=== PATIENT | female | born 1960 | race Caucasian/White ===

== ENCOUNTER 2016-09-21 10:38 | Inpatient (IN) | payer MEDICAID ==
[2016-09-21] VITALS (12 sets, daily range): BP systolic 100–114; BP diastolic 66–76
[~2016-09-21] VITALS: Ht 167.6 cm; Wt 44.5 kg
[2016-09-21] MEDS ORDERED: IV NS 0.9% 1,000 ML BAG IV ONE ×2 (11:30→13:00)
[2016-09-21 11:35] LABS: CALCIUM, SERUM 8.5 mg/dL (8.5-10.1); CREATININE 0.9 mg/dL (0.6-1.3); POTASSIUM 3.1 mmol/L (3.5-5.1)
[2016-09-21 11:43] LABS: TROPONIN I 0.028 ng/mL (0.00-0.056)
[2016-09-21 11:46] LABS: ALBUMIN 2.7 g/dL (3.4-5.0); BILIRUBIN,DIRECT 0.1 mg/dL (0.0-0.2); BILIRUBIN,TOTAL 0.4 mg/dL (0.2-1.0); INDIRECT BILIRUBIN 0.3 mg/dL (0.0-1.1); TOTAL PROTEIN, SERUM 7.6 g/dL (6.4-8.2)
[2016-09-21 11:53] LABS: INR 1.08 (0.87-1.13); PROTHROMBIN TIME 11.3 SECS (9.5-12.7)
[2016-09-21 12:13] LABS: BASOPHILS % (AUTO) 0.8 % (0.0-2.0); EOSINOPHILS % (AUTO) 0.1 % (0.0-6.0); LYMPHOCYTES # (AUTO) 1.5 /CMM (0.8-4.8); LYMPHOCYTES % (AUTO) 27.8 % (20.0-44.0); MEAN CORPUSCULAR HEMOGLOBIN 24 PG (26.0-33.0); MEAN CORPUSCULAR HGB CONC 31 g/dl (31.0-36.0); MEAN CORPUSCULAR VOLUME 80 fL (82-100); MONOCYTES # (AUTO) 0.5 /CMM (0.1-1.30); MONOCYTES % (AUTO) 8.8 % (2.0-12.0); NEUTROPHILS # (AUTO) 3.3 /CMM (1.8-8.9); NEUTROPHILS % (AUTO) 62.5 % (43.0-81.0); PLATELET COUNT (AUTO) 223 /CMM (150-450); WHITE BLOOD COUNT (AUTO) 5.3 K/uL (4.3-11.0)
[2016-09-21 12:23] LABS: RED BLOOD CELL COUNT(AUTO) 1.66 MIL/uL (4.0-5.2)
[2016-09-21 12:24] LABS: HEMATOCRIT 13 % (33-45)
[2016-09-21] MEDS ORDERED: IV NS 0.9% 1,000 ML ONE (12:33)
[2016-09-21] MEDS ORDERED: IV SET PRIMARY 1 EA INFUS.SET MC ONE ×2 (12:33→13:10)
[2016-09-21] MEDS ORDERED: IOHEXOL-300 100 ML VIAL IV ONE (12:35)
[2016-09-21] MEDS ORDERED: IV NS 0.9% 250 ML IV ONE ×2 (12:35→15:28)
[2016-09-21] MEDS ORDERED: CT SWABBABLE VALVE TRANS SET 1 EA INFUS.SET MC ONE (12:35)
[2016-09-21 12:42] LABS: THYROID STIMULATING HORMONE 622.396 uIU/mL (0.358-3.74)
[2016-09-21] MEDS ORDERED: PANTOPRAZOLE 80 MG in IV NS 0.9% 500 ML IV ONE (13:00)
[2016-09-21] MEDS ORDERED: IV SET PRIMARY PUMP SET 1 EA INFUS.SET MC ONE ×4 (13:09→16:30)
[2016-09-21] MEDS ORDERED: NS 0.9% ONE (13:10)
[2016-09-21] MEDS ORDERED: HYDROMORPHONE 1 MG/1 ML DISP.SYRIN ONE (13:10)
[2016-09-21 13:15] LABS: ANISOCYTOSIS 3+; HYPOCHROMASIA 1+; LYMPHOCYTES % (MANUAL) 32 % (16-48); MICROCYTOSIS 1+; PLATELET ESTIMATE ADEQUATE; TARGET CELLS 1+
[2016-09-21 13:19] LABS: ADD UA MICROSCOPIC YES; KETONES,URINE Negative (NEGATIVE); LEUKOCYTE ESTERASE ,URINE Negative (NEGATIVE); PH,URINE 5.5 (5.0-8.0)
[2016-09-21 13:20] LABS: ADD URINE CULTURE NO
[2016-09-21] MEDS ORDERED: BLOOD IV SET 1 EA INFUS.SET MC ONE (15:28)
[2016-09-21] MEDS ORDERED: MAG HYDROX/AL HYDROX/SIMETH 30 ML UDC PO PRN (15:30)
[2016-09-21] MEDS ORDERED: MAGNESIUM HYDROXIDE 30 ML UDC PO PRN (15:30)
[2016-09-21] MEDS ORDERED: Z GUARD REMEDY 2 OZ OINT TP PRN (15:30)
[2016-09-21] MEDS ORDERED: ONDANSETRON HCL/PF 4 MG/2 ML VIAL IVP PRN (15:30)
[2016-09-21] MEDS ORDERED: ZOLPIDEM TARTRATE 5 MG TABLET PO PRN (15:30)
[2016-09-21] MEDS: IV NS 0.9% 1,000 ML IV PRN (16:12)
[2016-09-21] MEDS: POTASSIUM CL. PREMIX PERIPHER. 50 ML IV SCH ×4 (16:33→19:40)
[2016-09-21] MEDS: LEVOTHYROXINE INJ 100 MCG VIAL IV SCH (21:01)
[2016-09-22] VITALS (7 sets, daily range): BP systolic 105–127; BP diastolic 63–77
[2016-09-22 00:18] LABS: HEMOGLOBIN 8.8 g/dL (11.5-14.8)
[2016-09-22] MEDS: IV NS 0.9% 1,000 ML IV PRN (05:23)
[2016-09-22 07:15] LABS: BASOPHILS % (AUTO) 0.6 % (0.0-2.0); DIFF TOTAL % 100 %; HEMATOCRIT 26 % (33-45); HEMOGLOBIN 8.7 g/dL (11.5-14.8); LYMPHOCYTES # (AUTO) 1.5 /CMM (0.8-4.8); LYMPHOCYTES % (AUTO) 25.1 % (20.0-44.0); MEAN CORPUSCULAR HEMOGLOBIN 30 PG (26.0-33.0); MEAN CORPUSCULAR HGB CONC 34 g/dl (31.0-36.0); MEAN CORPUSCULAR VOLUME 88 fL (82-100); MONOCYTES # (AUTO) 0.3 /CMM (0.1-1.30); MONOCYTES % (AUTO) 4.6 % (2.0-12.0); NEUTROPHILS % (AUTO) 69.7 % (43.0-81.0); PLATELET COUNT (AUTO) 193 /CMM (150-450); RED BLOOD CELL COUNT(AUTO) 2.93 MIL/uL (4.0-5.2); WHITE BLOOD COUNT (AUTO) 5.8 K/uL (4.3-11.0)
[2016-09-22] MEDS: LEVOTHYROXINE INJ 100 MCG VIAL IV SCH (09:03)
[2016-09-22 10:07] LABS: CALCIUM, SERUM 7.4 mg/dL (8.5-10.1); CREATININE 0.7 mg/dL (0.6-1.3); POTASSIUM 3.4 mmol/L (3.5-5.1)
[2016-09-22 10:08] LABS: BILIRUBIN,TOTAL 0.5 mg/dL (0.2-1.0); PHOSPHORUS 2.5 mg/dL (2.5-4.9)
[2016-09-22 10:09] LABS: ALBUMIN 2.2 g/dL (3.4-5.0); TOTAL PROTEIN, SERUM 6.5 g/dL (6.4-8.2)
[2016-09-22 12:08] LABS: RETICULOCYTE COUNT 2.1 % (0.6-2.5)
[2016-09-22] MEDS ORDERED: SECONDARY IV SET 1 EA INFUS.SET MC ONE (14:11)
[2016-09-22] MEDS: Magnesium 1GM/D5W 100ML PREMIX 100 ML IV SCH ×2 (14:16→15:30)
[2016-09-22 14:22] LABS: THYROID STIMULATING HORMONE 431.9 uIU/mL (0.358-3.74)
[2016-09-22] MEDS ORDERED: POTASSIUM CHLORIDE 20 MEQ TAB.PRT.SR PO SCH (14:30)
[2016-09-22 14:47] LABS: URIC ACID 4.7 mg/dL (2.6-7.2)
[2016-09-22 14:50] LABS: THYROID STIMULATING HORMONE 431.9 uIU/mL (0.358-3.74)
[2016-09-22] MEDS: PANTOPRAZOLE 40 MG TABLET.DR PO SCH (18:48)
[2016-09-23 04:00] VITALS: BP 116/81
[2016-09-23] MEDS: IV NS 0.9% 1,000 ML IV PRN ×2 (05:31→18:55)
[2016-09-23] MEDS: LEVOTHYROXINE INJ 100 MCG VIAL IV SCH (07:30)
[2016-09-23 08:00] VITALS: BP 116/81
[2016-09-23 08:09] LABS: VIT D, 25-HYDROXY 5.3 ng/mL (30.0-100.0)
[2016-09-23 10:07] LABS: BASOPHILS % (AUTO) 0.1 % (0.0-2.0); DIFF TOTAL % 100 %; EOSINOPHILS % (AUTO) 0.7 % (0.0-6.0); HEMATOCRIT 30 % (33-45); HEMOGLOBIN 9.7 g/dL (11.5-14.8); LYMPHOCYTES # (AUTO) 1.4 /CMM (0.8-4.8); LYMPHOCYTES % (AUTO) 19.6 % (20.0-44.0); MEAN CORPUSCULAR HEMOGLOBIN 26 PG (26.0-33.0); MEAN CORPUSCULAR HGB CONC 32 g/dl (31.0-36.0); MEAN CORPUSCULAR VOLUME 82 fL (82-100); MONOCYTES # (AUTO) 0.4 /CMM (0.1-1.30); MONOCYTES % (AUTO) 5.1 % (2.0-12.0); NEUTROPHILS # (AUTO) 5.2 /CMM (1.8-8.9); NEUTROPHILS % (AUTO) 74.5 % (43.0-81.0); PLATELET COUNT (AUTO) 210 /CMM (150-450); RED BLOOD CELL COUNT(AUTO) 3.71 MIL/uL (4.0-5.2); WHITE BLOOD COUNT (AUTO) 6.9 K/uL (4.3-11.0)
[2016-09-23] MEDS: PANTOPRAZOLE 40 MG TABLET.DR PO SCH (10:07)
[2016-09-23 10:16] LABS: CALCIUM, SERUM 7.8 mg/dL (8.5-10.1); CREATININE 0.8 mg/dL (0.6-1.3); POTASSIUM 3.5 mmol/L (3.5-5.1)
[2016-09-23 12:00] VITALS: BP 116/81
[2016-09-23 16:00] VITALS: BP 116/81
[2016-09-23 20:00] VITALS: BP 119/76
[2016-09-24] VITALS: BP 117/82
[2016-09-24 04:00] VITALS: BP 126/84
[2016-09-24] MEDS: IV NS 0.9% 1,000 ML IV PRN ×2 (05:23→17:05)
[2016-09-24 08:00] VITALS: BP 118/76
[2016-09-24] MEDS: LEVOTHYROXINE INJ 100 MCG VIAL IV SCH (08:55)
[2016-09-24] MEDS: PANTOPRAZOLE 40 MG TABLET.DR PO SCH (08:55)
[2016-09-24 16:00] VITALS: BP 111/67
[2016-09-24 20:00] VITALS: BP 114/69
[2016-09-24] MEDS: TOBRAMYCIN/DEXAMETH OPHTH DORPS 2.5 ML BOTTLE EACHEYE SCH ×2 (21:24→23:00)
[2016-09-24 22:00] VITALS: BP 114/69
[2016-09-25] MEDS: TOBRAMYCIN/DEXAMETH OPHTH DORPS 2.5 ML BOTTLE EACHEYE SCH ×12 (01:30→23:25)
[2016-09-25 04:00] VITALS: BP 120/79
[2016-09-25] MEDS: IV NS 0.9% 1,000 ML IV PRN (06:24)
[2016-09-25 08:00] VITALS: BP 107/72
[2016-09-25] MEDS: PANTOPRAZOLE 40 MG TABLET.DR PO SCH (08:34)
[2016-09-25] MEDS: LEVOTHYROXINE INJ 100 MCG VIAL IV SCH (08:34)
[2016-09-25 12:28] LABS: DIFF TOTAL % 100 %; EOSINOPHILS % (AUTO) 0.5 % (0.0-6.0); HEMATOCRIT 25 % (33-45); HEMOGLOBIN 8.2 g/dL (11.5-14.8); LYMPHOCYTES # (AUTO) 1.5 /CMM (0.8-4.8); LYMPHOCYTES % (AUTO) 18.1 % (20.0-44.0); MEAN CORPUSCULAR HEMOGLOBIN 27 PG (26.0-33.0); MEAN CORPUSCULAR HGB CONC 33 g/dl (31.0-36.0); MEAN CORPUSCULAR VOLUME 81 fL (82-100); MONOCYTES # (AUTO) 0.6 /CMM (0.1-1.30); MONOCYTES % (AUTO) 7.1 % (2.0-12.0); NEUTROPHILS # (AUTO) 6.1 /CMM (1.8-8.9); NEUTROPHILS % (AUTO) 74.3 % (43.0-81.0); PLATELET COUNT (AUTO) 184 /CMM (150-450); RED BLOOD CELL COUNT(AUTO) 3.09 MIL/uL (4.0-5.2); WHITE BLOOD COUNT (AUTO) 8.3 K/uL (4.3-11.0)
[2016-09-25] MEDS ORDERED: SECONDARY IV SET 1 EA INFUS.SET MC ONE (14:23)
[2016-09-25] MEDS: SOD FERRIC GLUC 125 MG in IV NS 0.9% 100 ML IV SCH (14:29)
[2016-09-25 16:00] VITALS: BP 112/68
[2016-09-25 20:00] VITALS: BP 109/65
[2016-09-26] VITALS (9 sets, daily range): BP systolic 82–118; BP diastolic 64–77
[2016-09-26] MEDS: TOBRAMYCIN/DEXAMETH OPHTH DORPS 2.5 ML BOTTLE EACHEYE SCH ×12 (01:33→23:12)
[2016-09-26 07:17] LABS: DIFF TOTAL % 100 %; EOSINOPHILS # (AUTO) 0.1 /CMM (0.0-0.7); EOSINOPHILS % (AUTO) 0.7 % (0.0-6.0); HEMATOCRIT 25 % (33-45); HEMOGLOBIN 8.3 g/dL (11.5-14.8); LYMPHOCYTES # (AUTO) 1.5 /CMM (0.8-4.8); MEAN CORPUSCULAR HEMOGLOBIN 28 PG (26.0-33.0); MEAN CORPUSCULAR HGB CONC 33 g/dl (31.0-36.0); MEAN CORPUSCULAR VOLUME 84 fL (82-100); MONOCYTES # (AUTO) 0.8 /CMM (0.1-1.30); MONOCYTES % (AUTO) 9.8 % (2.0-12.0); NEUTROPHILS # (AUTO) 5.8 /CMM (1.8-8.9); NEUTROPHILS % (AUTO) 71.5 % (43.0-81.0); PLATELET COUNT (AUTO) 188 /CMM (150-450); RED BLOOD CELL COUNT(AUTO) 2.99 MIL/uL (4.0-5.2); WHITE BLOOD COUNT (AUTO) 8.1 K/uL (4.3-11.0)
[2016-09-26 07:37] LABS: CALCIUM, SERUM 8.3 mg/dL (8.5-10.1); CREATININE 0.8 mg/dL (0.6-1.3)
[2016-09-26 07:45] LABS: POTASSIUM 2.8 mmol/L (3.5-5.1)
[2016-09-26] MEDS: PANTOPRAZOLE 40 MG TABLET.DR PO SCH (08:40)
[2016-09-26] MEDS: LEVOTHYROXINE INJ 100 MCG VIAL IV SCH (08:40)
[2016-09-26] MEDS ORDERED: POTASSIUM CHLORIDE 20 MEQ TAB.PRT.SR PO ONE (12:00)
[2016-09-26] MEDS ORDERED: PEG 3350/NA SULF,BICARB,CL/KCL 4,000 ML BOTTLE PO ONE (13:30)
[2016-09-26] MEDS ORDERED: ADENOSINE 6 MG/2 ML VIAL IVP ONE (14:30)
[2016-09-26] MEDS: SOD FERRIC GLUC 125 MG in IV NS 0.9% 100 ML IV SCH (15:10)
[2016-09-26] MEDS ORDERED: IV NS 0.9% 250 ML BAG IV ONE (15:30)
[2016-09-27] VITALS: BP 135/82
[2016-09-27] MEDS: TOBRAMYCIN/DEXAMETH OPHTH DORPS 2.5 ML BOTTLE EACHEYE SCH ×12 (01:14→23:00)
[2016-09-27 04:00] VITALS: BP 124/79
[2016-09-27 07:08] LABS: BASOPHILS % (AUTO) 0.1 % (0.0-2.0); DIFF TOTAL % 100 %; EOSINOPHILS # (AUTO) 0.1 /CMM (0.0-0.7); EOSINOPHILS % (AUTO) 0.9 % (0.0-6.0); HEMATOCRIT 28 % (33-45); HEMOGLOBIN 9.3 g/dL (11.5-14.8); LYMPHOCYTES # (AUTO) 1.1 /CMM (0.8-4.8); LYMPHOCYTES % (AUTO) 11.5 % (20.0-44.0); MEAN CORPUSCULAR HEMOGLOBIN 27 PG (26.0-33.0); MEAN CORPUSCULAR HGB CONC 33 g/dl (31.0-36.0); MEAN CORPUSCULAR VOLUME 82 fL (82-100); MONOCYTES # (AUTO) 0.9 /CMM (0.1-1.30); MONOCYTES % (AUTO) 9.7 % (2.0-12.0); NEUTROPHILS # (AUTO) 7.4 /CMM (1.8-8.9); NEUTROPHILS % (AUTO) 77.8 % (43.0-81.0); PLATELET COUNT (AUTO) 212 /CMM (150-450); RED BLOOD CELL COUNT(AUTO) 3.44 MIL/uL (4.0-5.2); WHITE BLOOD COUNT (AUTO) 9.5 K/uL (4.3-11.0)
[2016-09-27] MEDS ORDERED: POTASSIUM CL. PREMIX PERIPHER. 50 ML IV SCH (07:30)
[2016-09-27] MEDS ORDERED: IV SET PRIMARY PUMP SET 1 EA INFUS.SET MC ONE (07:55)
[2016-09-27 08:00] VITALS: BP 114/71
[2016-09-27] MEDS: LEVOTHYROXINE INJ 100 MCG VIAL IV SCH (08:36)
[2016-09-27] MEDS: PANTOPRAZOLE 40 MG TABLET.DR PO SCH (08:36)
[2016-09-27 08:46] LABS: CALCIUM, SERUM 8.7 mg/dL (8.5-10.1); CREATININE 0.7 mg/dL (0.6-1.3); POTASSIUM 3.8 mmol/L (3.5-5.1)
[2016-09-27 08:54] LABS: ALBUMIN 2.4 g/dL (3.4-5.0); BILIRUBIN,TOTAL 0.7 mg/dL (0.2-1.0); PHOSPHORUS 2.4 mg/dL (2.5-4.9); TOTAL PROTEIN, SERUM 7.5 g/dL (6.4-8.2)
[2016-09-27] MEDS: POTASSIUM CL. PREMIX PERIPHER. 50 ML IV SCH ×4 (09:28→14:23)
[2016-09-27 12:00] VITALS: BP 118/70
[2016-09-27] MEDS ORDERED: DEXTROSE 50%-WATER 50 ML DISP.SYRIN ONE (12:00)
[2016-09-27] MEDS: Magnesium 1GM/D5W 100ML PREMIX 100 ML IV SCH ×2 (13:30→14:25)
[2016-09-27 16:00] VITALS: BP 139/79
[2016-09-27] MEDS: SOD FERRIC GLUC 125 MG in IV NS 0.9% 100 ML IV SCH (16:04)
[2016-09-27] MEDS ORDERED: K PHOS NEUTRAL 250 MG TABLET PO ONE (17:30)
[2016-09-27 20:00] VITALS: BP 123/77
[2016-09-28] VITALS: BP 119/66
[2016-09-28] MEDS ORDERED: TOBRAMYCIN OPHTH 5ML 5 ML BOTTLE ONE (01:29)
[2016-09-28] MEDS ORDERED: TOBRAMYCIN/DEXAMETH OPHTH DORPS 2.5 ML BOTTLE ONE (01:39)
[2016-09-28] MEDS: TOBRAMYCIN/DEXAMETH OPHTH DORPS 2.5 ML BOTTLE EACHEYE SCH ×6 (01:51→11:24)
[2016-09-28 04:00] VITALS: BP 118/68
[2016-09-28 08:00] VITALS: BP 129/76
[2016-09-28] MEDS: LEVOTHYROXINE INJ 100 MCG VIAL IV SCH (09:15)
[2016-09-28] MEDS: PANTOPRAZOLE 40 MG TABLET.DR PO SCH (09:15)
[2016-09-28 11:12] LABS: ALBUMIN 2.4 g/dL (3.4-5.0); BILIRUBIN,TOTAL 0.5 mg/dL (0.2-1.0); CALCIUM, SERUM 8.7 mg/dL (8.5-10.1); CREATININE 0.8 mg/dL (0.6-1.3); PHOSPHORUS 2.4 mg/dL (2.5-4.9); POTASSIUM 3.5 mmol/L (3.5-5.1); TOTAL PROTEIN, SERUM 7.6 g/dL (6.4-8.2)
[2016-09-28 11:14] LABS: BASOPHILS % (AUTO) 0.2 % (0.0-2.0); DIFF TOTAL % 100 %; EOSINOPHILS # (AUTO) 0.1 /CMM (0.0-0.7); EOSINOPHILS % (AUTO) 0.8 % (0.0-6.0); HEMATOCRIT 28 % (33-45); HEMOGLOBIN 8.9 g/dL (11.5-14.8); LYMPHOCYTES # (AUTO) 1.8 /CMM (0.8-4.8); LYMPHOCYTES % (AUTO) 24.8 % (20.0-44.0); MEAN CORPUSCULAR HEMOGLOBIN 27 PG (26.0-33.0); MEAN CORPUSCULAR HGB CONC 32 g/dl (31.0-36.0); MEAN CORPUSCULAR VOLUME 85 fL (82-100); MONOCYTES # (AUTO) 0.7 /CMM (0.1-1.30); MONOCYTES % (AUTO) 9.3 % (2.0-12.0); NEUTROPHILS # (AUTO) 4.8 /CMM (1.8-8.9); NEUTROPHILS % (AUTO) 64.9 % (43.0-81.0); PLATELET COUNT (AUTO) 232 /CMM (150-450); RED BLOOD CELL COUNT(AUTO) 3.28 MIL/uL (4.0-5.2); WHITE BLOOD COUNT (AUTO) 7.4 K/uL (4.3-11.0)
[2016-09-28 11:24] LABS: TROPONIN I 0.199 ng/mL (0.00-0.056)
== END 2016-09-28 13:16 | disposition home or self-care (01) | DRG 241 ==
LOC: ER 10:41 → ICU 13:56 → TELE-TD 20:11 → MEDSG1 09-22 10:20 → TELE1 09-26 13:12 → TELE-TD 09-26 14:35 → MEDSG1 09-28 11:10
PROVIDERS: ADMIT Internal Medicine; ATTEND Internal Medicine
PROC: 30233N1 Transfusion of Nonautologous Red Blood Cells into Peripheral Vein, Percutaneous Approach (ICD-10-PCS; principal; 2016-09-21)
PROC: 0DB38ZX Excision of Lower Esophagus, Via Natural or Artificial Opening Endoscopic, Diagnostic (ICD-10-PCS; 2016-09-22)
PROC: 0DB68ZX Excision of Stomach, Via Natural or Artificial Opening Endoscopic, Diagnostic (ICD-10-PCS; 2016-09-22)
PROC: 0DB98ZX Excision of Duodenum, Via Natural or Artificial Opening Endoscopic, Diagnostic (ICD-10-PCS; 2016-09-22)
PROC: 0DBM8ZZ Excision of Descending Colon, Via Natural or Artificial Opening Endoscopic (ICD-10-PCS; 2016-09-27)
DX: K29.01 Acute gastritis with bleeding (principal); E43 Unspecified severe protein-calorie malnutrition; E87.1 Hypo-osmolality and hyponatremia; K22.70 Barrett's esophagus without dysplasia; K29.70 Gastritis, unspecified, without bleeding; K44.9 Diaphragmatic hernia without obstruction or gangrene; E03.9 Hypothyroidism, unspecified; D50.9 Iron deficiency anemia, unspecified; E87.6 Hypokalemia; Z72.0 Tobacco use; D62 Acute posthemorrhagic anemia; D12.4 Benign neoplasm of descending colon; K52.9 Noninfective gastroenteritis and colitis, unspecified; K64.1 Second degree hemorrhoids; Z68.1 Body mass index [BMI] 19.9 or less, adult
CPT/HCPCS: 36415; 70450-TC; 71010-TC; 76536-TC; 80048-TC; 80053-TC; 80061-TC; 80076-TC; 81000-TC; 82272-TC; 82306; 82378; 82728-TC; 82746; 82962-TC; 83540-TC; 83615-TC; 83735-TC; 84100-TC; 84439-TC; 84443-TC; 84481; 84484-TC; 84550-TC; 85025-TC; 85027-TC; 85045-TC; 85652-TC; 85730-TC; 86850-TC; 86921-TC; 87081-TC; 87086-TC; 88305-TC; 88313-TC; 88342; 93307-TC; 97001-TC; 97116-TC; 97530-TC; A4606; C9113; J0153; J1170; J2916; J3475; J3480; J7030; J7040; J7050; P9016-BL; Q9967; Z7610